=== PATIENT | female | born 1940 | race Caucasian/White ===

== ENCOUNTER 2022-06-01 13:19 | Emergency (ER) | payer MEDICARE ==
[~2022-06-01] VITALS: Ht 154.9 cm; Wt 61.2 kg
[2022-06-01 15:42] VITALS: BP 140/70
== END 2022-06-01 15:45 | disposition home or self-care (01) ==
LOC: EDH 13:19
DX: R07.89 Other chest pain (principal); Z88.2 Allergy status to sulfonamides; V89.2XXA Person injured in unspecified motor-vehicle accident, traffic, initial encounter; Y93.I9 Activity, other involving external motion; Y92.488 Other paved roadways as the place of occurrence of the external cause; Y99.8 Other external cause status
CPT/HCPCS: 99282